=== PATIENT | female | born 1950 | race Caucasian/White ===

== ENCOUNTER 2016-11-07 11:57 | Observation (INO) | payer BC ==
[2016-11-07] MEDS ORDERED: Sodium Chloride 0.9% 1,000 ML IV ONE (12:25)
[2016-11-07] MEDS ORDERED: Sodium Chloride 0.9% 5 ML Syringe FLUSH PRN (12:25)
--- NOTE | 2016-11-07 12:38 | EDM.PDOC ---
ED HPI GENERAL MEDICAL PROBLEM - General Chief Complaint: General Stated Complaint: RECTAL BLEEDING Time Seen by Provider: 11/07/16 12:20 Source of Information: Reports: Patient History Limitations: Reports: No Limitations - History of Present Illness INITIAL COMMENTS - FREE TEXT/NARRATIVE: 66 YO WF presents to ER with rectal bleeding which began last night. Pt reports she had a colonoscopy in [place] yesterday and was told they snared approximately 12 polyps. Pt restarted her coumadin this am which she takes for previous DVT. Pt states shes had approximately 6 episodes of BRBPR. Pt reports mild dizziness but denies chest pain or shortness of breath. Pt denies any fever/chills. Onset Date: 11/06/16 Duration: Day(s): (2) Severity: Mild Improves with: Reports: None Worsens with: Reports: None Associated Symptoms: Reports: Loss of Appetite, Weakness. Denies: Confusion, Chest Pain, Cough, cough w sputum, Diaphoresis, Fever/Chills, Headaches, Malaise , Nausea/Vomiting, Rash, Seizure, Shortness of Breath, Syncope - Related Data Allergies Allergy/AdvReac Type Severity Reaction Status Date / Time ciprofloxacin Allergy Other Verified 11/07/16 12:24 doxycycline Allergy Nausea and Verified 11/07/16 12:24 Vomiting Penicillins Allergy Swelling Verified 11/07/16 12:24 Home Meds: Home Meds Aspirin 325 mg PO DAILY 11/29/13 [History] Warfarin [Coumadin] 3.25 mg PO MOWEFR 02/15/16 [History] Warfarin [Coumadin] 7.5 mg PO SUTUTHSA 02/15/16 [History] amLODIPine Besylate/Benazepril [Amlodipine-Benazepril 10-20 MG] 1 cap PO BEDTIME 02/15/16 [History] Past Medical History HEENT History: Reports: Impaired Vision Cardiovascular History: Reports: Blood Clots/VTE/DVT Respiratory History: Reports: COPD 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 Oncologic (Cancer) History: Reports: Breast - Past Surgical History Cardiovascular Surgical History: Reports: Varicose Respiratory Surgical History: Reports: None Social & Family History - Tobacco Use Smoking Status *Q: Current Every Day Smoker Years of Tobacco use: 40 Packs/Tins Daily: 1 Month Tobacco Last Used: 11/2013 Second Hand Smoke Exposure: No - Caffeine Use Caffeine Use: Reports: Coffee - Alcohol Use Days Per Week of Alcohol Use: 7 Number of Drinks Per Day: 2 Total Drinks Per Week: 14 - Recreational Drug Use Recreational Drug Use: No ED ROS GENERAL - Review of Systems Review Of Systems: See Below Constitutional: Reports: No Symptoms HEENT: Reports: No Symptoms Respiratory: Reports: No Symptoms Cardiovascular: Reports: No Symptoms Endocrine: Reports: No Symptoms GI/Abdominal: Reports: Hematochezia. Denies: Hematemesis, Melena, Nausea, Vomiting : Reports: No Symptoms Musculoskeletal: Reports: No Symptoms Skin: Reports: No Symptoms Neurological: Reports: No Symptoms Psychiatric: Reports: No Symptoms Hematologic/Lymphatic: Reports: No Symptoms Immunologic: Reports: No Symptoms ED EXAM, GENERAL - Physical Exam Exam: See Below Exam Limited By: No Limitations General Appearance: Alert, WD/WN, No Apparent Distress Head: Atraumatic, Normocephalic Neck: Normal Inspection, Supple, Non-Tender, Full Range of Motion Respiratory/Chest: No Respiratory Distress, Lungs Clear, Normal Breath Sounds, No Accessory Muscle Use, Chest Non-Tender Cardiovascular: Normal Peripheral Pulses GI/Abdominal: Normal Bowel Sounds, Soft, Non-Tender, No Organomegaly, No Distention, No Abnormal Bruit, No Mass Rectal (Female) Exam: Heme + Stool Back Exam: Normal Inspection, Full Range of Motion, NT Extremities: Normal Inspection, Normal Range of Motion, Non-Tender, Normal Capillary Refill, No Pedal Edema Neurological: Alert, Oriented, CN II-XII Intact, Normal Cognition, Normal Gait, Normal Reflexes, No Motor/Sensory Deficits Psychiatric: Normal Affect, Normal Mood Skin Exam: Warm, Dry, Intact, Normal Color, No Rash Lymphatic: No Adenopathy Course - Vital Signs Last Recorded V/S: Last Vital Signs Temp 36.2 C 11/07/16 12:04 Pulse 89 11/07/16 12:04 Resp 18 11/07/16 12:04 BP 84/54 L 11/07/16 12:04 Pulse Ox 99 11/07/16 12:04 - Orders/Labs/Meds Orders: Active Orders 24 hr Category Date Time Status Peripheral IV Care [RC] . DIRECTED Care 11/07/16 12:25 Active TYPE AND SCREEN [BBK] Stat Lab 11/07/16 12:37 Ordered Sodium Chloride 0.9% [Syrex Flush] Med 11/07/16 12:25 Active 5 ml FLUSH Q8HR PRN Peripheral IV Insertion Adult [OM.PC] Routine Oth 11/07/16 12:25 Ordered Medication Orders Sodium Chloride (Syrex Flush) 5 ml FLUSH Q8HR PRN PRN Reason: Keep Vein Open Labs: Laboratory Tests 11/07/16 11/07/16 11/07/16 Range/Units 12:15 12:15 12:15 WBC 8.5 (5.0-10.0) 10^3/uL RBC 2.59 L (3.80-5.50) 10^6/uL Hgb 8.9 L (12.0-16.0) g/dL Hct 26.1 L (37.0-47.0) % MCV 101.0 H (82.0-92.0) fL MCH 34.5 H (27.0-31.0) pg MCHC 34.2 (32.0-36.0) g/dL RDW 16.7 H (11.5-14.5) % Plt Count 249 (150-300) 10^3/uL MPV 6.3 L (7.4-10.4) fL Neut % (Auto) 85.2 H (50.0-70.0) % Lymph % (Auto) 8.5 L (20.0-40.0) % [place] % (Auto) 5.5 (2.0-8.0) % Eos % (Auto) 0.5 L (1.0-3.0) % Baso % (Auto) 0.3 (0.0-1.0) % Neut # (Auto) 7.3 H (2.5-7.0) 10^3/uL Lymph # (Auto) 0.7 L (1.0-4.0) 10^3/uL [place] # (Auto) 0.5 (0.1-0.8) 10^3/uL Eos # (Auto) 0.0 L (0.1-0.3) 10^3/uL Baso # (Auto) 0.0 (0.0-0.1) 10^3/uL PT 22.2 H (8.9-11.4) SEC INR 2.1 H (0.9-1.1) APTT 39.0 H (20.8-31.2) SEC Sodium 131 L (136-145) mmol/L Potassium 4.1 (3.3-5.3) mmol/L Chloride 98 (98-115) mmol/L Carbon Dioxide 23.3 (21.0-32.0) mmol/L BUN 14 (6-25) mg/dL Creatinine 0.94 (0.51-1.17) mg/dL Est Cr Clr Drug Dosing 44.43 mL/min Estimated GFR (MDRD) 60 mL/min Glucose 163 H (70-110) mg/dL Calcium 8.2 L (8.7-10.3) mg/dL Total Bilirubin 0.4 (0.2-1.0) mg/dL AST 24 (15-37) U/L ALT 24 (12-78) U/L Alkaline Phosphatase 60 (46-116) IU/L Total Protein 6.6 (6.4-8.2) g/dL Albumin 3.54 (3.00-4.80) g/dL Meds: Medications Generic Name Dose Route Start Last Admin Trade Name Freq PRN Reason Stop Dose Admin Sodium Chloride 5 ml 11/07/16 12:25 Syrex Flush FLUSH Q8HR PRN Keep Vein Open Discontinued Medications Generic Name Dose Route Start Last Admin Trade Name Freq PRN Reason Stop Dose Admin Sodium Chloride 1,000 mls @ 999 mls/hr 11/07/16 12:25 Normal Saline IV 11/07/16 13:25 .BOLUS ONE Departure - Departure Time of Disposition: 13:34 Disposition: Refer to Observation Condition: Fair Clinical Impression: Rectal bleeding, Coagulation disorder - Discharge Information Forms: ED Department Discharge - My Orders Last 24 Hours: My Active Orders 11/07/16 12:25 Peripheral IV Care [RC] . DIRECTED Sodium Chloride 0.9% [Syrex Flush] 5 ml FLUSH Q8HR PRN Peripheral IV Insertion Adult [OM.PC] Routine 11/07/16 12:37 TYPE AND SCREEN [BBK] Stat - Assessment/Plan Last 24 Hours: My Active Orders 11/07/16 12:25 Peripheral IV Care [RC] . DIRECTED Sodium Chloride 0.9% [Syrex Flush] 5 ml FLUSH Q8HR PRN Peripheral IV Insertion Adult [OM.PC] Routine 11/07/16 12:37 TYPE AND SCREEN [BBK] Stat Assessment:: 1. rectal bleeding 2. anemia 3. coagulopathy Plan: 1. hold coumadin 2. serial H/H 3. admit to [facility] for further evaluation and management 4. IVF 5. supportive care
[2016-11-07] MEDS ORDERED: Sodium Chloride 1 GM Tab PO ONE (14:53)
[2016-11-07] MEDS: Iron Polysaccharides Complex 150 MG Cap PO SCH ×2 (16:36→20:35)
--- NOTE | 2016-11-07 16:42 | HP ---
CHIEF COMPLAINT: Bright red bleeding from her rectum. HISTORY OF PRESENT ILLNESS: This is a 66-year-old patient who has had history of iron deficiency anemia. She was sent to [facility] yesterday for colonoscopy for further evaluation. The patient had 12 polyps removed yesterday. The patient does have a history of a DVT to her right leg about two and half years ago. She is on anticoagulation therapy. She takes Coumadin daily. She had stopped her Coumadin three days prior to the colonoscopy yesterday. She says she went home yesterday after having colonoscopy. She took her Coumadin last night. She says this morning she woke up and she was having some bright red stools. She says she has had four to five small bright red stools. She says she just feels weak and dizzy, just kind of fatigue, does not feel like she has much strength. She denies any syncopal episodes or any chest pain or shortness of breath. She says her appetite is very good. PAST MEDICAL HISTORY: The patient has a history of DVT, iron deficiency anemia, hyponatremia, GERD, chronic constipation, and hypertension. MEDICATIONS: That the patient takes at home. She takes sodium chloride 1 g at bedtime. She takes omeprazole 20 mg daily in the morning. She takes a Miranda- Colace one tab twice a day. She takes Niferex 150 mg three times a day. She takes Coumadin 5 mg daily, titrating per [facility]R Clinic. She also takes baby aspirin 81 mg daily. She also takes amlodipine/benazepril 10/20 one capsule at bedtime. ALLERGIES: The patient is allergic to Cipro, doxycycline, and penicillin. SOCIAL/PERSONAL HISTORY: The patient does live by herself in [place]. She does manage a bar and restaurant. She does currently smoke cigarettes, but she denies any recent alcohol use. REVIEW OF SYSTEMS: CONSTITUTIONAL: She complains of weakness, dizziness, fatigue, decreased appetite. EYES: No recent visual changes. ENT: No sinus congestion or hoarseness. CARDIOVASCULAR: No chest pain or palpitations. RESPIRATORY: No cough. No shortness of breath. GI: No vomiting, diarrhea or melena. There is bright red bloody stool. : No dysuria or hematuria. MUSCULOSKELETAL: No new bone pain or joint swelling. INTEGUMENTARY: No rash or pruritus. NEUROLOGIC/PSYCHIATRIC: No recent headache or focal weakness. No depressive symptoms. ENDOCRINE: No heat or cold intolerances or polydipsia. HEMATOLOGIC/LYMPHATIC: No excessive bruising or lymph node swelling. ALLERGIC/IMMUNOLOGIC: No hives or recurrent infections. PHYSICAL EXAMINATION: GENERAL: This is a white female, in no acute distress. VITAL SIGNS: Her weight is 115 pounds. Temperature is 97.2, pulse is 89, blood pressure is 84/54, respiratory rate is 18, oxygen saturation on room air is 99%. HEENT: Head is normocephalic. EOMs are intact. Pupils are equal, round, and reactive to light and accommodation. Bilateral tympanic membranes are intact. Nose is clear. No pharyngeal erythema noted. NECK: Supple. No JVD. Trachea midline. No lymphadenopathy noted. LUNGS: Lung sounds are clear in the upper lobes, diminished at bilateral bases. She does have distant lung sounds. CARDIAC: Regular rate and rhythm. No murmurs identified. ABDOMEN: Soft, nontender, nondistended. Bowel sounds present x4. EXTREMITIES: Full range of motion. No joint effusions noted. NEUROLOGIC: Grossly intact. DIAGNOSTIC: The patient's laboratory work that was obtained in the emergency room. CBC shows a white count within normal range at 8.5, hemoglobin low at 8.9, the patient's platelet count is 249. The patient's PT is 22.2, INR is 2.1, PTT is 39.0. Chemistry panel shows sodium low at 131, calcium low at 8.2, otherwise unremarkable. IMPRESSION/PLAN: 1. Lower gastrointestinal bleed after colonoscopy with several polyp removals. Plan: We are going to hold the patient's Coumadin at this time. We will continue with aspirin 81 mg daily. We are going to let her wear some Alonso stockings to prevent from deep venous thrombosis. We are going to do hemoglobins every 6 hours. We will type and cross the patient for in case she needs blood transfusion. We will continue with Niferex 150 mg three times a day. We are going to hold the patient's omeprazole dose. I am going to start her on Protonix 40 mg IV daily. 2. History of right lower extremity deep venous thrombosis. Plan: Continue hold Coumadin at this time. Alonso stockings. 3. History of hypertension. Plan: The patient's blood pressure is low in the emergency room at 84/54. We are going to hold the patient's amlodipine and benazepril at this time. Monitor blood pressures. 4. History of hyponatremia. Plan: The patient's sodium level continued to be low at 131. We will continue with sodium chloride 1 g tablet at bedtime. We will give her another g in the morning. /[id number]/MODL
[2016-11-07] MEDS: Nicotine 14 MG/24 Hr Patch TRDERM SCH (20:26)
[2016-11-07] MEDS ORDERED: Non-Formulary Medication 1 Each (Amlodipine Besylate/Benazepril [Amlodipine-Benazepril 10- PO SCH (21:00)
[2016-11-07] MEDS ORDERED: Sodium Chloride 1 GM Tab PO SCH (21:00)
[2016-11-08] MEDS ORDERED: Aspirin 81 MG Tab.EC PO SCH (09:00)
[2016-11-08] MEDS ORDERED: Sodium Chloride 1 GM Tab PO ONE (09:00)
[2016-11-08] MEDS: Iron Polysaccharides Complex 150 MG Cap PO SCH (09:04)
[2016-11-08] MEDS: Nicotine 14 MG/24 Hr Patch TRDERM SCH (11:19)
[2016-11-08 11:52] VITALS: BP 158/89
--- NOTE | 2016-11-09 08:16 | DISCH ---
ADMITTING DIAGNOSIS: Rectal bleeding, status post colonoscopy. FINAL DIAGNOSIS: Rectal bleeding, improved. BRIEF HISTORY AND ESSENTIAL FINDINGS: The patient is a 66-year-old female patient, who has history of a DVT to her right leg approximately two and half years ago. She is on Coumadin therapy. She was scheduled for colonoscopy in [place] on Wednesday for assessment of chronic iron deficiency anemia. The patient's Coumadin was held for three days prior to the procedure, but colonoscopy was performed and she had 12 polyps removed. The patient went home. She was doing okay on Wednesday night, but she woke up Wednesday morning, she was having multiple small bright red bloody stool. She states that she was in the shower and she had actually bright red blood running down her leg while she was in the shower. She felt really weak and dizzy and lightheaded. She came to the emergency room on Wednesday for further evaluation and treatment at that time. SIGNIFICANT LABS, X-RAYS, AND CONSULTATION FINDINGS: The patient's lab work that was obtained in the emergency room. CBC showed a white count within normal range at 8.5, hemoglobin was 8.9, platelet count was 249. The patient's INR was 2.1, PT was 22.2, PTT was 39.0. Chemistry panel shows sodium to be low at 131, calcium low at 8.2, otherwise unremarkable. Repeat lab work that was obtained at 8 p.m. last evening hemoglobin had come down to 6.9. Repeat lab work that was obtained today, which is 11/08/2016. Prior to discharge, CBC showed white count within normal range at 5.6, hemoglobin 10.3, platelet count at 203. The patient's sodium level today is 137. INR today is 1.8. COURSE IN HOSPITAL WITH COMPLICATIONS IF ANY: The patient had no further bright red stools after admission. She did have two small stools that she stated that were performed, but were black. The patient was transfused 2 units of packed RBCs. Her hemoglobin came up to 10.3. She says she feels fine. She no longer feels fatigued, dizzy, or lightheaded. She feels like she wants go home. She has had a good appetite. CONDITION TREATMENT AND FINAL DISPOSITION ON DISCHARGE AND PROGNOSIS: Condition is stable. Final disposition will be home. IMPRESSION AND PLAN: 1. Gastrointestinal bleed, lower secondary to colonoscopy with multiple polyp removals. Plan: I am going to send the patient home. Continue the patient on Coumadin. We will give her 2.5 mg tonight when she gets home. She needs to call the INR Clinic tomorrow for further dosing. We will continue the patient on omeprazole 20 mg daily along with Niferex 150 mg three times a day. Also continue her on the aspirin 81 mg daily. 2. History of right lower extremity deep venous thrombosis. Plan: We are going to start the patient back on her Coumadin a lower dose 2.5 mg tonight, have INR managed. The patient INR today was 1.8. 3. History of hypertension. The patient's blood pressure medications were held while in the hospital. We are going to restart her back on her amlodipine and benazepril, 10 mg of amlodipine daily along with 20 mg of benazepril daily. Blood pressure on time of discharge was actually slightly elevated at 158/89. 4. History of hyponatremia. Plan: The patient's sodium level within normal range today on day of discharge at 137. She usually takes 1 g of sodium chloride at bedtime. We will continue that at home. The patient will need to follow up in clinic in one week with her primary care provider. /[id number]/MODL
== END 2016-11-08 12:45 | disposition home or self-care (01) ==
LOC: KA.ED 11:57 → KA.MS 14:00
PROVIDERS: ADMIT Physician Assistant Medical; ATTEND Physician Assistant
DX: K91.840 Postprocedural hemorrhage of a digestive system organ or structure following a digestive system procedure (principal); K62.5 Hemorrhage of anus and rectum; I10 Essential (primary) hypertension; K21.9 Gastro-esophageal reflux disease without esophagitis; F17.210 Nicotine dependence, cigarettes, uncomplicated; J44.9 Chronic obstructive pulmonary disease, unspecified; D68.9 Coagulation defect, unspecified; Z86.718 Personal history of other venous thrombosis and embolism; Z79.899 Other long term (current) drug therapy; Z79.01 Long term (current) use of anticoagulants; Z79.82 Long term (current) use of aspirin; Z98.890 Other specified postprocedural states; Z86.010 Personal history of colon polyps
CPT/HCPCS: 36415; 36430; 80053; 84295; 85018; 85025; 85610; 85730; 86850; 86900; 86901; 86920; 86922; 96360; 99284; A9270; G0378; J7030; P9016

== ENCOUNTER 2017-09-20 21:45 | Emergency (ER) | payer BC ==
[2017-09-20] MEDS ORDERED: Sodium Chloride 0.9% 5 ML Syringe FLUSH PRN (22:00)
[2017-09-20] MEDS: Sodium Chloride 0.9% 500 ML IV SCH (22:10)
[2017-09-20] MEDS: Potassium Chloride 20 MEQ Tab.ER PO ONE (23:20)
[2017-09-21 05:13] VITALS: BP 106/68
[2017-09-21 06:48] LABS: SODIUM,NA 133 mmol/L (136-145)
[2017-09-21 06:49] LABS: CHLORIDE,CL 93 mmol/L (98-115)
--- NOTE | 2017-09-21 12:45 | EDM.PDOC ---
ED HPI GENERAL MEDICAL PROBLEM - General Chief Complaint: General Stated Complaint: "legs gave out" Time Seen by Provider: 09/20/17 22:00 Source of Information: Reports: Patient History Limitations: Reports: No Limitations - History of Present Illness INITIAL COMMENTS - FREE TEXT/NARRATIVE: Patient is a 67-year-old female who presents to the emergency department this evening with a complaint of weakness in the legs. Patient states that she left a bar establishment, walked outside to smoke a cigarette and felt weak in her legs. Patient states it was hard to stay standing up. However, she did not fall to ground. Patient admits to consuming between 6 and 9 alcoholic drinks, however, this is a daily occurrence. She also states that she does have a history of anemia and is on iron supplement. Patient states that she has poor eating habits and usually is one meal per day. Patient denies chest pain, shortness of breath, headache, blurry vision, facial numbness or tingling, extremity numbness or tingling, blood in her stool, nausea, vomiting or diarrhea. Onset: Today, Sudden Duration: Minutes: Location: Reports: Lower Extremity, Left, Lower Extremity, Right Quality: Reports: Other (No pain) Severity: Mild Improves with: Reports: Rest Worsens with: Reports: Movement Context: Reports: Activity Associated Symptoms: Reports: No Other Symptoms - Related Data Allergies Allergy/AdvReac Type Severity Reaction Status Date / Time ciprofloxacin Allergy Other Verified 09/21/17 02:57 doxycycline Allergy Nausea and Verified 09/21/17 02:57 Vomiting Penicillins Allergy Swelling Verified 09/21/17 02:57 Home Meds: Home Meds amLODIPine Besylate/Benazepril [Amlodipine-Benazepril 10-20 MG] 1 cap PO BEDTIME 02/15/16 [History] Aspirin [Adult Low Dose Aspirin EC] 81 mg PO DAILY 11/07/16 [History] Iron Polysaccharides Complex [Ferrex 150] 150 mg PO TID 11/07/16 [History] Omeprazole 20 mg PO ACBREAKFAST 11/07/16 [History] Sennosides/Docusate Sodium [Senna-Docusate Sodium] 1 each PO BID 11/07/16 [ History] Sodium Chloride 1 gm PO BEDTIME 11/07/16 [History] Clopidogrel Bisulfate [Clopidogrel] 1 tab PO DAILY 09/21/17 [History] Past Medical History HEENT History: Reports: Impaired Vision Cardiovascular History: Reports: Blood Clots/VTE/DVT, Hypertension Respiratory History: Reports: COPD, Other (See Below) Other Respiratory History: Every day smoker Gastrointestinal History: Reports: Colon Polyp, GI Bleed Genitourinary History: Reports: None [employer] History: Reports: Musculoskeletal History: Reports: Arthritis, Fracture Neurological History: Reports: None 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 Endocrine/Metabolic History: Reports: None Hematologic History: Reports: Blood Transfusion(s), Iron Deficiency Oncologic (Cancer) History: Reports: Breast - Infectious Disease History Infectious Disease History: Reports: Measles - Past Surgical History Cardiovascular Surgical History: Reports: Coronary Artery Bypass, Coronary Artery Stent, Varicose Respiratory Surgical History: Reports: None GI Surgical History: Reports: Colonoscopy, Polypectomy Female Surgical History: Reports: Breast Biopsy, Mastectomy Endocrine Surgical History: Reports: None Neurological Surgical History: Reports: None Oncologic Surgical History: Reports: Mastectomy Social & Family History - Family History Family Medical History: Noncontributory - Tobacco Use Smoking Status *Q: Current Every Day Smoker Years of Tobacco use: 50 Packs/Tins Daily: 2 Used Tobacco, but Quit: No Second Hand Smoke Exposure: Yes - Caffeine Use Caffeine Use: Reports: Coffee, Soda, Tea - Alcohol Use Days Per Week of Alcohol Use: 7 Number of Drinks Per Day: 5 Total Drinks Per Week: 35 Date of Last Drink: 09/20/17 Time of Last Drink: 21:00 - Recreational Drug Use Recreational Drug Use: No ED ROS GENERAL - Review of Systems Review Of Systems: ROS reveals no pertinent complaints other than HPI. Constitutional: Reports: No Symptoms HEENT: Reports: No Symptoms Respiratory: Reports: No Symptoms Cardiovascular: Reports: No Symptoms Endocrine: Reports: No Symptoms GI/Abdominal: Reports: No Symptoms : Reports: No Symptoms Musculoskeletal: Reports: No Symptoms Skin: Reports: No Symptoms Neurological: Reports: No Symptoms Psychiatric: Reports: No Symptoms Hematologic/Lymphatic: Reports: No Symptoms Immunologic: Reports: No Symptoms ED EXAM, GENERAL - Physical Exam Exam: See Below Exam Limited By: No Limitations General Appearance: Alert, WD/WN, No Apparent Distress Eye Exam: Bilateral Eye: Normal Inspection Throat/Mouth: Normal Inspection, Normal Oropharynx, No Airway Compromise Head: Atraumatic, Normocephalic Neck: Normal Inspection, Supple, Non-Tender Respiratory/Chest: No Respiratory Distress, Lungs Clear Cardiovascular: Regular Rate, Rhythm, No Murmur GI/Abdominal: Normal Bowel Sounds Back Exam: Normal Inspection. No: CVA Tenderness (L), CVA Tenderness (R) Extremities: Normal Inspection, Normal Range of Motion, Non-Tender, No Pedal Edema Neurological: Alert, Oriented, CN II-XII Intact, Normal Cognition, No Motor/ Sensory Deficits Psychiatric: Normal Affect, Normal Mood Skin Exam: Warm, Dry, Intact, Normal Color, No Rash Lymphatic: No Adenopathy Course - Vital Signs Last Recorded V/S: Last Vital Signs Temp 97.1 F 09/20/17 21:50 Pulse 135 H 09/20/17 21:50 Resp 18 09/20/17 23:10 BP 106/68 09/20/17 23:10 Pulse Ox 92 L 09/20/17 23:10 - Orders/Labs/Meds Orders: Active Orders 24 hr Category Date Time Status Peripheral IV Care [RC] . DIRECTED Care 09/20/17 22:00 Active Peripheral IV Insertion Adult [OM.PC] Routine Oth 09/20/17 22:00 Ordered Labs: Laboratory Tests 09/20/17 09/20/17 09/20/17 Range/Units 22:15 22:15 22:15 WBC 5.9 (5.0-10.0) 10^3/uL RBC 4.85 (3.80-5.50) 10^6/uL Hgb 15.9 D (12.0-16.0) g/dL Hct 48.4 H (37.0-47.0) % MCV 99.6 H D (82.0-92.0) fL MCH 32.8 H (27.0-31.0) pg MCHC 32.9 (32.0-36.0) g/dL RDW 15.9 H (11.5-14.5) % Plt Count 248 (150-300) 10^3/uL MPV 6.7 L (7.4-10.4) fL Neut % (Auto) 66.7 (50.0-70.0) % Lymph % (Auto) 22.1 (20.0-40.0) % [place] % (Auto) 9.3 H (2.0-8.0) % Eos % (Auto) 1.7 (1.0-3.0) % Baso % (Auto) 0.2 (0.0-1.0) % Neut # (Auto) 4.0 (2.5-7.0) 10^3/uL Lymph # (Auto) 1.3 (1.0-4.0) 10^3/uL [place] # (Auto) 0.5 (0.1-0.8) 10^3/uL Eos # (Auto) 0.1 (0.1-0.3) 10^3/uL Baso # (Auto) 0.0 (0.0-0.1) 10^3/uL PT (8.9-11.4) SEC INR (0.9-1.1) APTT 27.2 (20.8-31.2) SEC Sodium 133 L (136-145) mmol/L Potassium 2.3 L* D (3.3-5.3) mmol/L Chloride 93 L (98-115) mmol/L Carbon Dioxide 25.5 (21.0-32.0) mmol/L BUN 16 (6-25) mg/dL Creatinine 0.93 (0.51-1.17) mg/dL Est Cr Clr Drug Dosing 44.74 mL/min Estimated GFR (MDRD) > 60 mL/min Glucose 79 (70-110) mg/dL Calcium 8.2 L (8.7-10.3) mg/dL Total Bilirubin 0.3 (0.2-1.0) mg/dL AST 35 (15-37) U/L ALT 22 (12-78) U/L Alkaline Phosphatase 149 H (46-116) IU/L Total Protein 7.5 (6.4-8.2) g/dL Albumin 3.22 (3.00-4.80) g/dL Ethyl Alcohol (0-3) mg/dL 09/21/17 09/21/17 Range/Units 03:02 03:02 WBC (5.0-10.0) 10^3/uL RBC (3.80-5.50) 10^6/uL Hgb (12.0-16.0) g/dL Hct (37.0-47.0) % MCV (82.0-92.0) fL MCH (27.0-31.0) pg MCHC (32.0-36.0) g/dL RDW (11.5-14.5) % Plt Count (150-300) 10^3/uL MPV (7.4-10.4) fL Neut % (Auto) (50.0-70.0) % Lymph % (Auto) (20.0-40.0) % [place] % (Auto) (2.0-8.0) % Eos % (Auto) (1.0-3.0) % Baso % (Auto) (0.0-1.0) % Neut # (Auto) (2.5-7.0) 10^3/uL Lymph # (Auto) (1.0-4.0) 10^3/uL [place] # (Auto) (0.1-0.8) 10^3/uL Eos # (Auto) (0.1-0.3) 10^3/uL Baso # (Auto) (0.0-0.1) 10^3/uL PT 10.0 D (8.9-11.4) SEC INR 1.0 (0.9-1.1) APTT (20.8-31.2) SEC Sodium (136-145) mmol/L Potassium (3.3-5.3) mmol/L Chloride (98-115) mmol/L Carbon Dioxide (21.0-32.0) mmol/L BUN (6-25) mg/dL Creatinine (0.51-1.17) mg/dL Est Cr Clr Drug Dosing mL/min Estimated GFR (MDRD) mL/min Glucose (70-110) mg/dL Calcium (8.7-10.3) mg/dL Total Bilirubin (0.2-1.0) mg/dL AST (15-37) U/L ALT (12-78) U/L Alkaline Phosphatase (46-116) IU/L Total Protein (6.4-8.2) g/dL Albumin (3.00-4.80) g/dL Ethyl Alcohol 227 H* (0-3) mg/dL Meds: Medications Discontinued Medications Generic Name Dose Route Start Last Admin Trade Name Freq PRN Reason Stop Dose Admin Sodium Chloride 500 mls @ 999 mls/hr 09/20/17 22:00 09/20/17 22:10 Normal Saline IV 999 mls/hr .BOLUS MARIALUISA Administration Potassium Chloride 40 meq 09/20/17 23:20 09/20/17 23:20 Klor-Con M20 PO 09/20/17 23:21 40 meq ONETIME ONE Administration Sodium Chloride 5 ml 09/20/17 22:00 Syrex Flush FLUSH Q8HR PRN Keep Vein Open - Re-Assessments/Exams Free Text/Narrative Re-Assessment/Exam: 09/21/17 12:46 Patient afebrile, nontoxic appearing, vital signs stable. Patient hemoglobin and hematocrit within normal limits. Patient found to be hypokalemic at 2.3. However, patient denies any chest pain, shortness of breath, headache, blurry vision, muscle twitching, or cramps. Patient was offered admission, but she did refuse. She was given oral potassium 40 mg and advised to follow-up at clinic in the morning for re-blood draw and check of potassium level. Patient was also instructed that if symptoms develop during the night to return to the emergency department. 09/21/17 12:49 Departure - Departure Time of Disposition: 12:48 Disposition: Home, Self-Care 01 Condition: Good Clinical Impression: Hypokalemia, Alcohol abuse - Discharge Information Instructions: Hypokalemia, Alcohol Use Disorder, Alcohol Abuse and Nutrition, What You Need to Know About Alcohol Abuse and Dependence, Adult, Potassium Content of Foods Referrals: PCP,Unknown [Primary Care Provider] - Forms: ED Department Discharge Additional Instructions: Follow-up at [facility] in a.m. Return to emergency sooner if symptoms continue or worsen. - My Orders Last 24 Hours: My Active Orders 09/20/17 22:00 Peripheral IV Care [RC] . DIRECTED Peripheral IV Insertion Adult [OM.PC] Routine - Assessment/Plan Last 24 Hours: My Active Orders 09/20/17 22:00 Peripheral IV Care [RC] . DIRECTED Peripheral IV Insertion Adult [OM.PC] Routine Assessment:: Hypokalemia, weakness, alcohol abuse Plan: Follow-up at the [facility] in a.m.
== END 2017-09-20 23:40 | disposition home or self-care (01) ==
LOC: KA.ED 21:45
DX: E87.6 Hypokalemia (principal); F10.129 Alcohol abuse with intoxication, unspecified; R53.1 Weakness; Y90.7 Blood alcohol level of 200-239 mg/100 ml; I10 Essential (primary) hypertension; J44.9 Chronic obstructive pulmonary disease, unspecified; F17.210 Nicotine dependence, cigarettes, uncomplicated; Z88.1 Allergy status to other antibiotic agents; Z88.0 Allergy status to penicillin; Z88.8 Allergy status to other drugs, medicaments and biological substances; Z79.899 Other long term (current) drug therapy
CPT/HCPCS: 36415; 80053; 85025; 85730; 96360; 99284; A9270-GY; J7040

== ENCOUNTER 2018-12-06 02:37 | Emergency (ER) | payer MEDICARE, BC ==
[2018-12-06] MEDS ORDERED: HYDROmorphone 1 MG/ML Syringe IVPUSH ONE (03:15)
[2018-12-06] MEDS ORDERED: Ondansetron 4 MG/2 ML SDV IVPUSH ONE (03:15)
[2018-12-06] MEDS: Sodium Chloride 0.9% 10 ML Syringe FLUSH PRN ×2 (03:18→04:03)
--- NOTE | 2018-12-06 03:20 | EDM.PDOC ---
ED HPI GENERAL MEDICAL PROBLEM - General Chief Complaint: General Stated Complaint: FALL Time Seen by Provider: 12/06/18 02:50 Source of Information: Reports: Patient History Limitations: Reports: No Limitations - History of Present Illness INITIAL COMMENTS - FREE TEXT/NARRATIVE: 68 YO WF presents to ER complaining of fall tonight while at custodial. 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 Pt reports she is unsteady when she gets up and fell landing in her right side. Pt complaining of pain at surgical site as well as right hip and left knee pain from fall. Pt denies any head injury, no neck pain, no back pain. Pt has a dressing on right BKA. Pts BKA is open with iodoform packing and wound edges are clean and dry. There was some minor bleeding from surgical site prior to arrival but has stopped since arrival. Onset: Today Location: Reports: Upper Extremity, Right, Lower Extremity, Left Quality: Reports: Ache Severity: Moderate Improves with: Reports: None Worsens with: Reports: Movement Associated Symptoms: Reports: No Other Symptoms Right Leg Pain Score (Numeric/FACES): 10 - Related Data Allergies Allergy/AdvReac Type Severity Reaction Status Date / Time ciprofloxacin Allergy Other Verified 12/06/18 02:48 doxycycline Allergy Nausea and Verified 12/06/18 02:48 Vomiting Penicillins Allergy Swelling Verified 12/06/18 02:48 Home Meds: Home Meds amLODIPine Besylate/Benazepril [Amlodipine-Benazepril 10-20 MG] 1 cap PO BEDTIME 02/15/16 [History] Aspirin [Adult Low Dose Aspirin EC] 81 mg PO DAILY 11/07/16 [History] Iron Polysaccharides Complex [Ferrex 150] 150 mg PO TID 11/07/16 [History] Omeprazole 20 mg PO ACBREAKFAST 11/07/16 [History] Sennosides/Docusate Sodium [Senna-Docusate Sodium] 1 each PO BID 11/07/16 [ History] Sodium Chloride 1 gm PO BEDTIME 11/07/16 [History] Clopidogrel Bisulfate [Clopidogrel] 1 tab PO DAILY 09/21/17 [History] Past Medical History HEENT History: Reports: Impaired Vision Cardiovascular History: Reports: Blood Clots/VTE/DVT, Hypertension Respiratory History: Reports: COPD, Other (See Below) Other Respiratory History: Every day smoker Gastrointestinal History: Reports: Colon Polyp, GI Bleed Genitourinary History: Reports: None [employer] History: Reports: Musculoskeletal History: Reports: Arthritis, Fracture Neurological History: Reports: None 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 Endocrine/Metabolic History: Reports: None Hematologic History: Reports: Blood Transfusion(s), Iron Deficiency Oncologic (Cancer) History: Reports: Breast Dermatologic History: Reports: None - Infectious Disease History Infectious Disease History: Reports: Measles - Past Surgical History Cardiovascular Surgical History: Reports: Coronary Artery Bypass, Coronary Artery Stent, Varicose Respiratory Surgical History: Reports: None GI Surgical History: Reports: Colonoscopy, Polypectomy Female Surgical History: Reports: Breast Biopsy, Mastectomy Endocrine Surgical History: Reports: None Neurological Surgical History: Reports: None Musculoskeletal Surgical History: Reports: Other (See Below) Other Musculoskeletal Surgeries/Procedures:: Right below the knee amputation Oncologic Surgical History: Reports: Mastectomy Social & Family History - Family History Family Medical History: Noncontributory - Tobacco Use Smoking Status *Q: Current Every Day Smoker Years of Tobacco use: 40 Packs/Tins Daily: 0.5 - Caffeine Use Caffeine Use: Reports: Coffee - Recreational Drug Use Recreational Drug Use: No ED ROS GENERAL - Review of Systems Review Of Systems: See Below Constitutional: Reports: No Symptoms HEENT: Reports: No Symptoms Respiratory: Reports: No Symptoms Cardiovascular: Reports: No Symptoms Endocrine: Reports: No Symptoms GI/Abdominal: Reports: No Symptoms : Reports: No Symptoms Musculoskeletal: Reports: Leg Pain Skin: Reports: Wound Neurological: Reports: No Symptoms Psychiatric: Reports: No Symptoms Hematologic/Lymphatic: Reports: No Symptoms Immunologic: Reports: No Symptoms ED EXAM, GENERAL - Physical Exam Exam: See Below Exam Limited By: No Limitations General Appearance: Alert, WD/WN, No Apparent Distress Head: Atraumatic, Normocephalic Neck: Normal Inspection, Supple, Non-Tender, Full Range of Motion Respiratory/Chest: No Respiratory Distress, Lungs Clear, Normal Breath Sounds, No Accessory Muscle Use, Chest Non-Tender Cardiovascular: Normal Peripheral Pulses, Regular Rate, Rhythm, No Edema, No Gallop, No JVD, No Murmur, No Rub GI/Abdominal: Normal Bowel Sounds, Soft, Non-Tender, No Organomegaly, No Distention, No Abnormal Bruit, No Mass Back Exam: Normal Inspection, Full Range of Motion, NT Extremities: Leg Pain (right BKA- open wound packed with iodoform without bleeding. ), Other (left knee pain without erythema, swelling or echymosis). No : Increased Warmth Neurological: Alert, Oriented, CN II-XII Intact, Normal Cognition, Normal Gait, Normal Reflexes, No Motor/Sensory Deficits Psychiatric: Normal Affect, Normal Mood Skin Exam: Warm, Dry, Intact, Normal Color, No Rash Lymphatic: No Adenopathy Course - Vital Signs Last Recorded V/S: Last Vital Signs Temp 36.7 C 12/06/18 02:52 Pulse 90 12/06/18 03:15 Resp 20 12/06/18 03:15 BP 119/88 12/06/18 03:15 Pulse Ox 92 L 12/06/18 03:15 - Orders/Labs/Meds Orders: Active Orders 24 hr Category Date Time Status Peripheral IV Care [RC] . DIRECTED Care 12/06/18 03:15 Ordered Hip Min 1V Rt [CR] Stat Exams 12/06/18 03:15 Ordered Knee 3V Bi [CR] Stat Exams 12/06/18 03:15 Ordered Sodium Chloride 0.9% [Saline Flush] Med 12/06/18 03:15 Ordered 10 ml FLUSH Q8HR PRN Peripheral IV Insertion Adult [OM.PC] Routine Oth 12/06/18 03:15 Ordered Medication Orders Sodium Chloride (Saline Flush) 10 ml FLUSH Q8HR PRN PRN Reason: keep vein open Last Admin: 12/06/18 03:18 Dose: 10 ml Meds: Medications Generic Name Dose Route Start Last Admin Trade Name Freq PRN Reason Stop Dose Admin Sodium Chloride 10 ml 12/06/18 03:15 12/06/18 03:18 Saline Flush FLUSH 10 ml Q8HR PRN Administration keep vein open Discontinued Medications Generic Name Dose Route Start Last Admin Trade Name Freq PRN Reason Stop Dose Admin Hydromorphone HCl 1 mg 12/06/18 03:15 12/06/18 03:20 Dilaudid IVPUSH 12/06/18 03:16 1 mg ONETIME ONE Administration Ketorolac Tromethamine 30 mg 12/06/18 03:59 Toradol IVPUSH 12/06/18 04:00 ONETIME ONE Ondansetron HCl 4 mg 12/06/18 03:15 12/06/18 03:18 Zofran IVPUSH 12/06/18 03:16 4 mg ONETIME ONE Administration - Radiology Interpretation Free Text/Narrative:: right hip- NAD right knee- NAD left knee- NAD - Re-Assessments/Exams Free Text/Narrative Re-Assessment/Exam: 12/06/18 04:08 Pt reports she has chronic pain in her right BKA- and it's always painful. Pt given additional medication to make her more comfortable. Departure - Departure Time of Disposition: 04:03 Disposition: DC/Tfer to SNF 03 Condition: Good Clinical Impression: Pain of amputation stump of right lower extremity Knee contusion Qualifiers: Encounter type: initial encounter Laterality: left Qualified Code(s): S80.02XA - Contusion of left knee, initial encounter Contusion, hip Qualifiers: Encounter type: initial encounter Laterality: right Qualified Code(s): S70.01XA - Contusion of right hip, initial encounter - Discharge Information Instructions: Contusion, [id number] Referrals: Liz Perdue MD [Primary Care Provider] - Forms: ED Department Discharge Additional Instructions: 1. discharge home 2. continue current pain medications 3. follow up with surgery for right AKA as scheduled next week 4. follow up with PCP for further evaluation and treatment 5. return to ER for worsening symptoms - My Orders Last 24 Hours: My Active Orders 12/06/18 03:15 Peripheral IV Care [RC] . DIRECTED Hip Min 1V Rt [CR] Stat Knee 3V Bi [CR] Stat Sodium Chloride 0.9% [Saline Flush] 10 ml FLUSH Q8HR PRN Peripheral IV Insertion Adult [OM.PC] Routine - Assessment/Plan Last 24 Hours: My Active Orders 12/06/18 03:15 Peripheral IV Care [RC] . DIRECTED Hip Min 1V Rt [CR] Stat Knee 3V Bi [CR] Stat Sodium Chloride 0.9% [Saline Flush] 10 ml FLUSH Q8HR PRN Peripheral IV Insertion Adult [OM.PC] Routine Assessment:: 1. fall 2. right hip contusion 3. right BKA pain 4. left knee contusion Plan: 1. discharge home 2. continue current pain medications 3. follow up with surgery for right AKA as scheduled next week 4. follow up with PCP for further evaluation and treatment 5. return to ER for worsening symptoms
[2018-12-06] MEDS ORDERED: Ketorolac 30 MG/ML SDV IVPUSH ONE (03:59)
[2018-12-06] MEDS ORDERED: LORazepam 2 MG/ML SDV IVPUSH ONE (04:08)
[2018-12-06 05:41] VITALS: BP 144/68; PULSE 100
--- NOTE | 2018-12-06 07:51 | CR ---
[id number] RAD/RAD Knee Bilateral 3V Exam: RAD Knee Bilateral 3V Clinical Data: TRAUMA COMPARISON: NO PREVIOUS SIMILAR EXAM IS AVAILABLE FINDINGS: There appears to be a below the knee amputation on the right. Here clinical correlation is needed. There is a stent in the distal right femoral artery. There is resection of the proximal right fibula. No fracture or dislocation of the right knee is seen. The left knee demonstrates mild degenerative change. There is no fracture or dislocation of the left knee. IMPRESSION: NO FRACTURE OR DISLOCATION. APPEARANCE OF PREVIOUS AMPUTATION ON THE RIGHT. HERE CLINICAL CORRELATION IS NEEDED. Roberto Medrano MD 12/06/18 0750 Thank you for allowing us to participate in the care of your patient.
--- NOTE | 2018-12-06 07:53 | CR ---
[id number] RAD/RAD Hip Right 1V EXAM: RAD Hip Right 1V CLINICAL DATA: TRAUMA COMPARISON: NO PREVIOUS SIMILAR EXAM IS AVAILABLE. FINDINGS: No fracture or dislocation is seen. There is a right external iliac artery stent.. IMPRESSION: NO FRACTURE OR DISLOCATION. Roberto Medrano MD 12/06/18 075 Thank you for allowing us to participate in the care of your patient.
== END 2018-12-06 06:00 ==
LOC: KA.ED 02:37
DX: T87.89 Other complications of amputation stump (principal); S70.01XA Contusion of right hip, initial encounter; S80.02XA Contusion of left knee, initial encounter; F17.210 Nicotine dependence, cigarettes, uncomplicated; Z88.0 Allergy status to penicillin; Z88.8 Allergy status to other drugs, medicaments and biological substances; Z79.82 Long term (current) use of aspirin; Z79.899 Other long term (current) drug therapy; Z95.1 Presence of aortocoronary bypass graft; Z88.1 Allergy status to other antibiotic agents; Z95.5 Presence of coronary angioplasty implant and graft; Y92.129 Unspecified place in nursing home as the place of occurrence of the external cause
CPT/HCPCS: 73501; 73562; 96374; 96375; 99284; J1170; J1885; J2060; J2405